=== PATIENT | male | born 2000 | race Asian ===

== ENCOUNTER 2019-01-26 21:30 | Emergency (ER) | payer MEDICAID ==
[~2019-01-26] VITALS: Ht 175.3 cm; Wt 135.0 kg
[2019-01-26] MEDS ORDERED: SODIUM CHLORIDE 0.9% 1,000 ML IV ONE (22:05)
[2019-01-26] MEDS ORDERED: LEVETIRACETAM 1000MG/100ML 100 ML IV ONE (22:15)
[2019-01-26 22:56] LABS: BASOPHILS % 0.5 % (0.0-2.0); EOSINOPHILS % 0.5 % (0.0-5.0); HEMOGLOBIN. 16.2 g/dL (14.0-18.0); LYMPHOCYTES % 14.4 % (20.0-50.0); MEAN CORPUSCULAR HEMOGLOBIN 31.2 pg (28.0-32.0); MEAN CORPUSCULAR VOLUME 92.1 fL (80.0-94.0); MONOCYTES % 5.3 % (2.0-8.0); NEUTROPHILS % 79.3 % (40.0-76.0); PLATELET 355 x1000/uL (130-400); RED BLOOD CELL COUNT 5.21 mill/uL (4.7-6.1); RED CELL DISTRIBUTION WIDTH 13.2 % (11.6-14.6)
[2019-01-26 23:04] LABS: CHLORIDE 109 mEq/L (98-107)
[2019-01-26 23:11] LABS: ETHANOL BLOOD < 10 mg/dL
[2019-01-27 00:50] VITALS: BP 106/66
== END 2019-01-27 00:52 | disposition home or self-care (01) ==
LOC: ER 21:30
DX: R56.9 Unspecified convulsions (principal)
CPT/HCPCS: 36415; 80053; 80320; 85025; 93005; 96365; 96366; 99284; J1953; J7030; G0480